=== PATIENT | female | born 1975 | race Caucasian/White ===

== ENCOUNTER 2017-07-30 02:30 | Emergency (ER) | payer SELFPAY ==
[~2017-07-30] VITALS: Ht 154.9 cm; Wt 59.0 kg
[2017-07-30 02:41] VITALS: BP 148/83; PULSE 105; RESP 18; TEMP 98.8; O2SAT 97
--- NOTE | 2017-07-30 03:01 | PD ---
HPI Chief Complaint: Injury Time Seen by Provider: 02:51 Travel History International Travel<30 days: No Contact w/Intl Traveler<30days: No Traveled to known affect area: No History of Present Illness HPI This is a 42-year-old female who presents for evaluation of closed head injury left foot injury. Presents with her . She reports that she drank a lot of alcohol tonight. Reportedly she ran into a pillar while walking. She hit her head on the pillar and also hit her left lower. Did not lose consciousness. She is complaining of a frontal headache as well as pain in the left foot. Pain is mild, aching, aggravated by injury with no relieving factors. Denies nausea, vomiting, blurred vision, neck or back pain, chest pain , shortness of breath, abdominal pain. She is not on any blood thinning medications. Last tetanus vaccination 5 years ago. No other complaints. PFSH Past Medical History Cancer: Yes (sinus ) Cardiovascular Problems: Yes (HTN) Hypertension: Yes Tetanus Vaccination: < 5 Years Influenza Vaccination: No ?: Not Past Surgical History Hysterectomy: Yes Other Surgery: Yes (Breast augmentation, Facial reconstruction) Social History Alcohol Use: Yes (2-3 drinks daily) Tobacco Use: Yes (1/2 PPD) Substance Use: No Allergies-Medications (Allergen,Severity, Reaction): Coded Allergies: Penicillins (Verified Allergy, Severe, 07/30/17) Reported Meds & Prescriptions Reported Meds & Active Scripts Active No Active Prescriptions or Reported Medications Review of Systems Except as stated in HPI: all other systems reviewed are Neg Physical Exam Narrative GENERAL: Well-developed well-nourished female no acute distress SKIN: Warm and dry. There is an abrasion on the dorsal left great toe. HEAD: Some tenderness to palpation of the right frontal scalp with a small hematoma. Normocephalic. EYES: Pupils equal and round. No scleral icterus. No injection or drainage. ENT: No nasal bleeding or discharge. Mucous membranes pink and moist. NECK: Trachea midline. No JVD. CARDIOVASCULAR: Regular rate and rhythm. No murmur appreciated. RESPIRATORY: No accessory muscle use. Clear to auscultation. Breath sounds equal bilaterally. GASTROINTESTINAL: Abdomen soft, non-tender, nondistended. Hepatic and splenic margins not palpable. MUSCULOSKELETAL: No obvious deformities. Skin as noted above. There is some tenderness to palpation along the left great toe and first metatarsal. No obvious deformity. NEUROLOGICAL: Awake and alert. No obvious cranial nerve deficits. Motor grossly within normal limits. Slurred speech Data Data Last Documented VS Vital Signs Date Time Temp Pulse Resp B/P (MAP) Pulse Ox O2 Delivery O2 Flow Rate FiO2 07/30/17 02:41 98.8 105 18 148/83 (104) [address] Brain W/O Iv Contrast(Rout) (07/30/17 ) Foot, Complete ([id number]) (07/30/17 ) Ed Discharge Order (07/30/17 03:43) Splint Or Brace Apply/Monitor (07/30/17 03:44) [facility] Medical Decision Making Medical Screen Exam Complete: Yes Emergency Medical Condition: Yes Medical Record Reviewed: Yes Differential Diagnosis Closed head injury, skull fracture, intracranial hemorrhage, toe fracture, abrasion, contusion, sprain Narrative Course CT the brain, x-ray of the foot ordered. Ice pack provided. Imaging studies are negative for acute process. The patient appears to have a toe sprain and closed head injury. She will be provided a postop shoe. Her will be driving her home. Stable for discharge. Diagnosis Primary Impression: Toe sprain Additional Impression: Closed head injury Additional Instructions: Ice the affected area several times a day 15 minutes at a time. Rest. Avoid strenuous activity. Return for any emergent medical conditions. Med/Other Pt SpecificInfo: Orthopedic Instructions Scripts No Active Prescriptions or Reported Meds Disposition: 01 DISCHARGE HOME Condition: Stable Enrrique Lama Jul 30, 2017 03:01
--- NOTE | 2017-07-30 03:28 | RADRPT ---
EXAM DATE: 07/30/2017 3:22 AM EDT AGE/SEX: 42 years / Female INDICATIONS: Fall. Left lateral foot pain. CLINICAL DATA: This is the patient's initial encounter. Patient reports that signs and symptoms have been present for 1 day and indicates a pain score of 6/10. MEDICAL/SURGICAL HISTORY: None. None. COMPARISON: No prior exams available for comparison. FINDINGS: Bony structures are intact and in normal alignment. Osseous density is normal. Soft tissues are unre markable. No radiopaque foreign bodies seen. CONCLUSION: Negative examination Electronically signed by: Robert Condon MD 07/30/2017 3:27 AM EDT
--- NOTE | 2017-07-30 03:28 | RADRPT ---
EXAM DATE: 07/30/2017 3:16 AM EDT AGE/SEX: 42 years / Female INDICATIONS: Trauma, fall. Hit forehead on a pole. CLINICAL DATA: This is the patient's initial encounter. Patient reports that signs and symptoms have been present for 1 day and indicates a pain score of 6/10. MEDICAL/SURGICAL HISTORY: Hypertension. Cardiovascular disease. Facial cancer. Hysterectomy. RADIATION DOSE: 56.35 CTDI (mGy) ; Patient motion COMPARISON: No prior exams available for comparison. TECHNIQUE: CT of the head without contrast. Using automated exposure control and adjustment of the mA and/or kV according to patient size, radiation dose was kept as low as reasonably achievable to ob tain optimal diagnostic quality images. DICOM format image data is available electronically for revi ew and comparison. FINDINGS: Cerebrum: The ventricles are normal for age. No evidence of midline shift, mass lesion, hemorrhage or acute infarction. No extraaxial fluid collections are seen. Posterior Fossa: The cerebellum and brainstem are intact. The 4th ventricle is midline. The cerebe llopontine angle is unremarkable. Extracranial: The visualized portion of the orbits is intact. Skull: The calvaria is intact. No evidence of skull fracture. CONCLUSION: 1. Negative CT Head non contrast. Electronically signed by: Robert Condon MD 07/30/2017 3:26 AM EDT
== END 2017-07-30 03:54 | disposition home or self-care (01) ==
LOC: NEPD 02:30
DX: S09.90XA Unspecified injury of head, initial encounter (principal); S93.502A Unspecified sprain of left great toe, initial encounter; W22.09XA Striking against other stationary object, initial encounter; I10 Essential (primary) hypertension; Z88.0 Allergy status to penicillin; F17.210 Nicotine dependence, cigarettes, uncomplicated
CPT/HCPCS: 70450; 73630; 99284; L3260